=== PATIENT | male | born 1975 | race African-American/Black ===

== ENCOUNTER 2019-11-28 04:01 | Observation (INO) | payer OTHER ==
[2019-11-28] VITALS (10 sets, daily range): BP systolic 135–152; BP diastolic 68–90
[~2019-11-28] VITALS: Ht 182.9 cm; Wt 88.5 kg
--- NOTE | 2019-11-28 04:33 | NUR ---
pt to e-2 and placed ondroplet precautions. iv to left ac with 20g to left ac.
[2019-11-28 04:50] LABS: BASOPHILS 0.3 % (0-2); EOSINOPHILS 0.6 % (0-7); HEMATOCRIT 46.8 % (42.0-54.0); HEMOGLOBIN 15.9 g/dL (13.5-17.5); IMMATURE GRANULOCYTES 0.2 % (0-5); LYMPHOCYTES 27.4 % (15-50); MCH 28.5 pg (26.0-34.0); MEAN PLATELET VOLUME 9.7 fL (7.4-10.4); MONOCYTES 8.3 % (2-11); NEUTROPHILS 63.2 % (40-80); PLATELET COUNT 154 10x3/uL (130-400); RBC 5.57 10x6/uL (4.20-6.10); WBC 6.4 10x3/uL (4.8-10.8)
[2019-11-28 05:05] LABS: CALC OSMOLALITY 276 mosm/kg (275-300); CALCIUM 8.5 mg/dL (8.5-10.1); CARBON DIOXIDE 26.2 mmol/L (21.0-32.0); CHLORIDE - SERUM 98 mmol/L (98-107); GLUCOSE 113 mg/dL (74-106); POTASSIUM - SERUM 3.6 mmol/L (3.5-5.1); SODIUM 137 mmol/L (136-145); UREA NITROGEN 17 mg/dL (7-18); eGFR NON AFRICAN AMERICAN 87 mL/min (90-120)
[2019-11-28 05:11] LABS: ALKALINE PHOSPHATASE 70 U/L (30-120); ALT (SGPT) 33 U/L (10-68); BILIRUBIN - TOTAL 0.43 mg/dL (0.2-1.3); LIPASE 97 U/L (73-393); PROTEIN - SERUM 7.9 g/dL (6.4-8.2)
--- NOTE | 2019-11-28 07:00 | NUR ---
REPORT TO MAGALI AGUILERA.
--- NOTE | 2019-11-28 07:57 | NUR ---
LR INFUSING AT 999 ML/H
[2019-11-28 08:00] LABS: BACTERIA FEW /hpf (NEGATIVE); BILIRUBIN NEGATIVE (NEGATIVE); EPITHELIAL CELLS OCC /hpf (0-5); GLUCOSE NEGATIVE (NEGATIVE); KETONE SMALL mg/dL (NEGATIVE); NITRITE NEGATIVE (NEGATIVE); RED CELLS - URINE OCC /hpf (0-5); UROBILINOGEN NORMAL (NORMAL); WHITE CELLS - URINE NSEEN /hpf (NEGATIVE)
--- NOTE | 2019-11-28 08:12 | NUR ---
LAB STATES THEY RECEIVED COVID SWAB BUT HAVE NOT ENTERED INTO COMPUTER YET.
--- NOTE | 2019-11-28 09:17 | NUR ---
LR 1000 ML INFUSED. STARTED 500ML LR.
--- NOTE | 2019-11-28 12:10 | NUR ---
PT TO CT. WEARING MASK FOR TRANSIT
--- NOTE | 2019-11-28 13:54 | NUR ---
REPORT GIVEN TO FLOOR NURSE, LETY MONTANA
--- NOTE | 2019-11-28 13:54 | NUR ---
ONCOMING NURSE ON FLOOR OFFERED AND WILL BE HANGING NS @ 200 ML/HR ORDERED FOR 1300.
--- NOTE | 2019-11-28 14:15 | NUR ---
TRANSPORTED PT IN WC WEARING MASK AND COVERED WITH A SHEET. GAVE PAPERWORK WITH PUI FORM AND SIGN IN SHEET TO DESK LEGISLATIVE CORRESPONDENT AND INFORMED NURSE. CHECKED PT IN TO ISOLATION ROOM AND SPOKE WITH LETY MONTANA.
--- NOTE | 2019-11-28 19:30 | NUR ---
PT IN BED, AAO X 3, RESP EVEN AND UNLABORED, NO DISTRESS NOTED AT THIS TIME. CL IN REACH, SR UP X 2. NO CNCERNS OR WANTS NOTED AT THIS TIME.
[2019-11-29 04:04] VITALS: BP 128/80
--- NOTE | 2019-11-29 04:22 | NUR ---
I have reviewed this patient and I concur with the Shift Assessment completed by the Licensed Practical Nurse today this shift.
[2019-11-29 05:53] LABS: HEMOGLOBIN 14.5 g/dL (13.5-17.5); LYMPHOCYTES 33.9 % (15-50); MCH 27.8 pg (26.0-34.0); MCV 84.3 fL (80.0-100.0); MEAN PLATELET VOLUME 10.9 fL (7.4-10.4); PLATELET COUNT 128 10x3/uL (130-400); RBC 5.22 10x6/uL (4.20-6.10); RDW 14.2 % (11.5-14.5); WBC 5.9 10x3/uL (4.8-10.8)
[2019-11-29 06:14] LABS: ALBUMIN 3.2 g/dL (3.4-5.0); ALKALINE PHOSPHATASE 58 U/L (30-120); ALT (SGPT) 24 U/L (10-68); AMYLASE - SERUM 188 U/L (25-115); BILIRUBIN - TOTAL 1.24 mg/dL (0.2-1.3); CALC OSMOLALITY 269 mosm/kg (275-300); CARBON DIOXIDE 26.3 mmol/L (21.0-32.0); CHLORIDE - SERUM 102 mmol/L (98-107); CREATININE - SERUM 0.9 mg/dL (0.6-1.3); GLUCOSE 87 mg/dL (74-106); LIPASE 312 U/L (73-393); MAGNESIUM - SERUM 1.9 mg/dL (1.8-2.4); PHOSPHOROUS 3.2 mg/dL (2.5-4.9); PROTEIN - SERUM 6.5 g/dL (6.4-8.2); SODIUM 136 mmol/L (136-145); UREA NITROGEN 10 mg/dL (7-18); eGFR NON AFRICAN AMERICAN > 90 mL/min (90-120)
[2019-11-29 10:05] VITALS: BP 139/86
[2019-11-29] MEDS ORDERED: PROTONIX40 MG PO (10:43)
[2019-11-29 11:31] LABS: UDS - AMPHET NEGATIVE QUAL (NEGATIVE); UDS - BARB NEGATIVE QUAL (NEGATIVE); UDS - BENZO NEGATIVE QUAL (NEGATIVE); UDS - COCAINE NEGATIVE QUAL (NEGATIVE); UDS - OPIATE POSITIVE QUAL (NEGATIVE); UDS - PCP NEGATIVE QUAL (NEGATIVE); UDS - THC NEGATIVE QUAL (NEGATIVE)
[2019-11-29 12:11] VITALS: Ht 182.9 cm; Wt 88.5 kg
--- NOTE | 2019-11-29 13:19 | NUR ---
DC PAPERWORK GONE OVER WITH PT. EXPLAINED TO HIM THAT HE NEEDS TO SELF QUARITINE FOR 14 DAYS OR UNTIL HE HEARS HIS RESULTS FROM [facility]. PIV REMOVED, CATH TIP FULLY INTACT. ALL VALUBLES PACKED AND TAKEN WITH PT. PT WHEELED TO FRONT ENTRANCE VIA WHEELCHAIR.
--- NOTE | 2019-11-29 15:52 | MORECARE ---
CASE MANAGEMENT DISCHARGE SUMMARY PATIENT: DEYSI ELIAS UNIT: [id number] ADM DATE: 11/28/19 AGE: 43 : 79 SEX: M ROOM/BED: D.9810 AUTHOR: CARMITA,DOC PHYSICIAN: REFERRING PHYSICIAN: ADEEL NOVOA MD DATE OF SERVICE: 11/29/19 Discharge Plan Patient Name: DEYSI ELIAS Facility: [facility]:[place] : 1975 Planned Disposition: Home Anticipated Discharge Date: 11/29/19 Discharge Date: 11/29/2019 Expected LOS: 1 Initial Reviewer: [email or web address] Initial Review Date: 11/29/2019 Generated: 11/29/19 4:52 pm Comments DCP- Discharge Planning Updated by [email or web address]: Rio Nicole on 11/29/19 2:[address] Patient Name: DEYSI ELIAS Admission Status: ER Accout number: [id number] Admission Date: 11-28-2019 : 1975 Admission Diagnosis: Attending: ADEEL NOVOA Current LOS: 1 Anticipated DC Date: 11-29-2019 Planned Disposition: Home Primary Insurance: [employer] Discharge Planning Comments: CM CALLED PT ON PHONE IN ROOM TO DISCUSS DISCHARGE PLANNING AND NEEDS DUE TO INFECTION PROTOCOL PROCEDURES. PT REPORTS LIVING AT HOME INDEPENDENTLY AND ALONE. PT HAS NO MEDICAL EQUIPMENT AND NO OUTSIDE SERVICES ASSISTING IN THE HOME. CM DISCUSSED AVAILABILITY OF HOME HEALTH, REHAB SERVICES AND MEDICAL EQUIPMENT. PT DENIES DISCHARGE NEEDS, REPORTS HE WILL CALL SOMEONE TO PICK HIM UP FOR DISCHARGE HOME. PT REPORTS HE DOES NOT KNOW IF HE FEELS WELL ENOUGH TO LEAVE. CM NOTIFIED DIRECTOR MEDICAL AFFAIRS NURSE. CM LATER NOTIFIED BY BEDSIDE NURSE THAT PT IS REQUESTING TO DISCHARGE NOW. Human Capital Manager: Rio Nicole DCPIA - Discharge Planning Initial Assessment Updated by [email or web address]: Rio Nicole on 11/29/19 3:38 pm * Is the patient Alert and Oriented? Yes * How many steps to enter\exit or inside your home? NONE * PCP NONE * [facility] [address] * Preadmission Environment Home Alone * ADLs Independent * Equipment None * Other Equipment NO MEDICAL EQUIPMENT PROVIDER PREFERNECE * List name and contact numbers for known caregivers / representatives who currently or will assist patient after discharge: SHENA ELIAS, FATHER, * Verbal permission to speak to the caregivers and representatives has been obtained from the patient. N/A * Community resources currently utilized None * Please name any agencies selected above. NONE * Additional services required to return to the preadmission environment? No * Can the patient safely return to the preadmission environment? Yes * Has this patient been hospitalized within the prior 30 days at any hospital? No Patient Name: DEYSI ELIAS Page [id number] at 1552 All edits/amendments must be made on the electronic document DICTATION DATE: 11/29/191551 OPERATIONS LABEL CLERK: TORIN 11/29/191551 RPT#: [id number] DC DATE:11/29/19 STATUS: DIS IN [facility] [address] [place] [address] END OF REPORT
== END 2019-11-29 13:25 | disposition home or self-care (01) ==
LOC: D.ER 04:01 → D.M2 13:05 → OBSVTIME 13:05 → D.ER 13:05 → D.M2 11-29 13:25
PROVIDERS: Emergency Medicine; Family Medicine; ADMIT Internal Medicine Nephrology; ATTEND Internal Medicine Nephrology
DX: K52.9 Noninfective gastroenteritis and colitis, unspecified (principal); F17.213 Nicotine dependence, cigarettes, with withdrawal; Z20.818 Contact with and (suspected) exposure to other bacterial communicable diseases